=== PATIENT | female | born 1980 | race American Indian/Alaskan Native ===

== ENCOUNTER 2017-04-28 18:18 | Inpatient (IN) | payer OTHER ==
[2017-04-28] MEDS ORDERED: Lactated Ringer's 1,000 ML IV SCH (19:00)
--- NOTE | 2017-04-28 19:29 | ED PDOC ---
HPI: Abdomen Time Seen by Provider: 04/28/17 18:32 Chief Complaint (Nursing): Abdominal Pain Chief Complaint (Provider): Vaginal bleeding, 14 weeks gestation Outside of [place] travel?: No Current Symptoms Are (Timing): Still Present Additional Complaint(s): LMP 01/15/18 presents with vaginal bleeding. Pt seen in ER at approx 5 weeks with some spotting. Pt states that the bleeding was only when wiping and then resolved. PT states she has appointment with OB in 2 days and has not seen anyone since. PT states the last few days he has been having spotting again and today she had some spotting. In the last few hours she has been having bleeding , she has to wear pad a lower abdominal cramping,. Past Medical History Reviewed: Historical Data, Nursing Documentation, Vital Signs Vital Signs: Last Vital Signs Temp 98.0 F 04/28/17 18:27 Pulse 85 04/28/17 18:27 Resp 16 04/28/17 18:27 BP 144/87 04/28/17 18:27 Pulse Ox 100 04/28/17 18:27 - Medical History PMH: No Chronic Diseases Denies: Chronic Kidney Disease - Surgical History Surgical History: Tonsillectomy - Family History Family History: States: Unknown Family Hx - Living Arrangements Living Arrangements: With Family - Social History Current smoker - smoking cessation education provided: No - Home Medications Home Medications: Ambulatory Orders Medication Instructions Recorded Docusate [Colace] 100 mg PO BID #0 udc 06/20/14 oxyCODONE/Acetaminophen [Percocet 1 tab PO Q4 PRN #0 tab 06/20/14 5/325 mg Tab] Multivit/Folic Acid/I 1 tab PO DAILY #30 tab 02/23/17 [ Plus] - Allergies Allergies/Adverse Reactions: Allergies Allergy/AdvReac Type Severity Reaction Status Date / Time No Known Allergies Allergy Verified 04/28/17 18:27 Review of Systems ROS Statement: Except As Marked, All Systems Reviewed And Found Negative Constitutional: Negative for: Fever, Chills Respiratory: Negative for: Cough, Shortness of Breath Genitourinary Female: Positive for: Vaginal Bleeding, Pelvic Pain Physical Exam - Reviewed Nursing Documentation Reviewed: Yes Vital Signs Reviewed: Yes - Physical Exam Appears: Positive for: Well, Non-toxic, No Acute Distress Head Exam: Positive for: ATRAUMATIC, NORMAL INSPECTION, NORMOCEPHALIC Skin: Positive for: Normal Color, Warm, DRY Eye Exam: Positive for: Normal appearance ENT: Positive for: Normal ENT Inspection Neck: Positive for: Normal, Painless ROM Cardiovascular/Chest: Positive for: Regular Rate, Rhythm Respiratory: Positive for: CNT, Normal Breath Sounds Gastrointestinal/Abdominal: Positive for: Normal Exam, Bowel Sounds, Soft. Negative for: Tenderness Back: Positive for: Normal Inspection Extremity: Positive for: Normal ROM Neurologic/Psych: Positive for: Alert, Oriented - ECG O2 Sat by Pulse Oximetry: 100 Medical Decision Making Medical Decision Making: Endorsed pending US and labs. Disposition - Clinical Impression Clinical Impression: Abdominal pain in - Patient ED Disposition Is Patient to be Admitted: Transfer of Care - Disposition Disposition: Transfer of Care Disposition Time: 20:00 Condition: GOOD
[2017-04-28 20:00] LABS: BASO % 0.4 % (0.0-2.0); EOS # 0.2 K/uL (0.0-0.7); EOS % 1.7 % (0.0-4.0); HEMOGLOBIN 13.1 g/dL (12.0-16.0); LYMPH # 1.5 K/uL (1.0-4.3); LYMPH % 14.1 % (20.0-40.0); MEAN CELL VOLUME 90.8 fl (81.0-99.0); MEAN CORPUSCULAR HGB CONC 34.1 g/dL (33.0-37.0); MEAN PLATELET VOLUME 7.7 fl (7.2-11.7); MONO # 0.9 K/uL (0.0-0.8); MONO % 8.3 % (0.0-10.0); NEUT # 7.9 K/uL (1.8-7.0); NEUT % 75.5 % (50.0-75.0); RBC 4.24 Mil/uL (3.80-5.20); RED CELL DISTRIBUTION WIDTH 13.8 % (11.5-14.5); WHITE BLOOD COUNT 10.5 K/uL (4.8-10.8)
[2017-04-28 20:17] LABS: ALB/GLOB RATIO 1.2 (1.0-2.1); ALT/SGPT 30 U/L (9-52); AST/SGOT 28 U/L (14-36); BLOOD UREA NITROGEN 11 mg/dl (7-17); CALCIUM 9.5 mg/dL (8.4-10.2); GFR AFRICAN-AMERICAN > 60; GFR NON-AFRICAN AMERICAN > 60
--- NOTE | 2017-04-28 21:13 | ED PDOC ---
- Laboratory Results Result Diagrams: 04/28/17 19:18 04/28/17 19:18 - ECG O2 Sat by Pulse Oximetry: 100 Medical Decision Making Medical Decision Making: Case endorsed to check writer salesperson from [facility] at 1999 pending US review and re-eval Upon my eval, pt in bed reports heavy bleeding beginning. Pt standing up in ED room with blood pooling onto floor. Pelvic preformed by check writer salesperson. (+) clots removed, cervix minimally open, 1 cm. Pt reports no cramping, declined analgesics at this time. US IMPRESSION: Single intrauterine with fetus corresponding to gestational age of 10 weeks and 4 days. No heart rate is identified. These findings are concerning for first trimester failure. Correlate clinically Case discussed with OB on-james, Dr. Dias, who presented to see and evaluated Pt at bedside. Pt to be admitted, D&C in am. Consent for procedure and possible transfusion if needed obtained by Larissa Ortega and check writer salesperson. Disposition - Clinical Impression Clinical Impression: Missed - POA Present On Arrival: None - Disposition Disposition: Admitted as In-Patient Disposition Time: 00:10 Condition: GOOD Forms: [facility] ([place])
--- NOTE | 2017-04-29 00:27 | CP.PCM.CON ---
<Andreas Tatum - Last Filed: 04/29/17 00:31> History of Present Illness - History of Present Illness History of Present Illness: 37 yo EGA approximately 14.6 wk based on LMP 01/14/2017 presents with 2 day history of pelvic cramping with spotting and 1 day history of vaginal bleeding with clots. She shares that throughout this , she has been experiencing occasional vaginal spotting of blood every other month. She has not been able to formally see obstetrics due to not having insurance. Last US:02/23/2017: Impression: Gestational sac identified. Below the threshold for calculation of reliable gestational age. PNC: scheduled with a provider in [place] PCP: none Obhx: Ab at 8 wks 16 years ago Gyne: denies hx of STIs; pap negative 1 year ago Mhx: umbilical hernia Famhx: dvt Surg: umbilica hernia repair 2014 Soc: denies: smoking/alcohol/illicit drugs Rx: PNV NKDA General: pleasant, in no acute distress HEENT: normocephalic, PERRLA; AAOx3 Heart: no murmurs, regular rate and rhythm, S1, S2 normal. Lungs: clear to auscultation bilaterally, no wheezing Abdomen: nontender CVA: negative Lower extremities: negative for pitting edema Pelvic: blood clots within the vaginal canal, however, no active bleeding. Cervix closed. Enrobing Machine Operator: YUMIKO Vega 37 yo EGA approximately 14.6 wk based on LMP 01/14/2017 Missed -Admit to floor on gyne service -H/H: 13.1/38.5 -Schedule for AM D&C; Consent obtained. Case d/w Dr. Larissa Tatum MD Family Medicine, PGY1 Past Patient History - Infectious Disease Hx of Infectious Diseases: None - Tetanus Immunizations Tetanus Immunization: Unknown - Past Medical History & Family History Past Medical History?: No - Past Social History Smoking Status: Never Smoked - CARDIAC Hx Cardiac Disorders: No - PULMONARY Hx Respiratory Disorders: No - NEUROLOGICAL Hx Neurological Disorder: No - HEENT Hx HEENT Problems: No - RENAL Hx Chronic Kidney Disease: No - ENDOCRINE/METABOLIC Hx Endocrine Disorders: No - HEMATOLOGICAL/ONCOLOGICAL Hx Blood Disorders: No - INTEGUMENTARY Hx Dermatological Problems: No - MUSCULOSKELETAL/RHEUMATOLOGICAL Hx Musculoskeletal Disorders: No - GASTROINTESTINAL Hx Gastrointestinal Disorders: No - GENITOURINARY/GYNECOLOGICAL Hx Genitourinary Disorders: No - PSYCHIATRIC Hx Psychophysiologic Disorder: No Hx Substance Use: No - SURGICAL HISTORY Hx Tonsillectomy: Yes - ANESTHESIA Hx Anesthesia: Yes Hx Anesthesia Reactions: No (denies) Hx Malignant Hyperthermia: No Meds Allergies/Adverse Reactions: Allergies Allergy/AdvReac Type Severity Reaction Status Date / Time No Known Allergies Allergy Verified 04/29/17 02:23 - Medications Medications: Current Medications Lactated Ringer's (Lactated Ringer's) 1,000 mls @ 1,000 mls/hr IV .Q1H ARTHUR Last Admin: 04/28/17 19:16 Dose: 1,000 mls/hr Lactated Ringer's (Lactated Ringer's) 1,000 mls @ 125 mls/hr IV .Q8H ARTHUR Results - Vital Signs Recent Vital Signs: Last Vital Signs Temp 98.0 F 04/28/17 18:27 Pulse 85 04/28/17 18:27 Resp 16 04/28/17 18:27 BP 144/87 04/28/17 18:27 Pulse Ox 100 04/29/17 00:10 - Labs Result Diagrams: 04/28/17 19:18 04/28/17 19:18 Labs: Laboratory Results - last 24 hr 04/28/17 04/28/17 04/28/17 19:18 19:18 19:18 WBC 10.5 RBC 4.24 Hgb 13.1 Hct 38.5 MCV 90.8 MCH 31.0 MCHC 34.1 RDW 13.8 Plt Count 293 MPV 7.7 Neut % (Auto) 75.5 H Lymph % (Auto) 14.1 L [place] % (Auto) 8.3 Eos % (Auto) 1.7 Baso % (Auto) 0.4 Neut # 7.9 H Lymph # 1.5 [place] # 0.9 H Eos # 0.2 Baso # 0.0 Sodium 140 Potassium 4.0 Chloride 104 Carbon Dioxide 27 Anion Gap 13 BUN 11 Creatinine 0.7 Est GFR ( Amer) > 60 Est GFR (Non-Af Amer) > 60 Random Glucose 92 Calcium 9.5 Total Bilirubin 0.4 AST 28 ALT 30 Alkaline Phosphatase 69 Total Protein 7.3 Albumin 4.0 Globulin 3.3 Albumin/Globulin Ratio 1.2 Beta HCG, Quant 3730.00 Blood Type O POSITIVE Antibody Screen Negative BBK History Checked Patient has bt <Daljit Dias - Last Filed: 04/29/17 07:28> Meds - Medications Medications: Current Medications Acetaminophen (Tylenol 325mg Tab) 650 mg PO Q4H PRN PRN Reason: Pain, Mild (1-3) Last Admin: 04/29/17 02:27 Dose: 650 mg Lactated Ringer's (Lactated Ringer's) 1,000 mls @ 1,000 mls/hr IV .Q1H ARTHUR Last Admin: 04/28/17 19:16 Dose: 1,000 mls/hr Lactated Ringer's (Lactated Ringer's) 1,000 mls @ 125 mls/hr IV .Q8H ARTHUR Results - Vital Signs Recent Vital Signs: Last Vital Signs Temp 99 F 04/29/17 06:04 Pulse 70 04/29/17 06:04 Resp 20 04/29/17 06:04 BP 105/62 04/29/17 06:04 Pulse Ox 100 04/29/17 06:04 - Labs Result Diagrams: 04/29/17 05:30 04/28/17 19:18 Labs: Laboratory Results - last 24 hr 04/28/17 04/28/17 04/28/17 19:18 19:18 19:18 WBC 10.5 RBC 4.24 Hgb 13.1 Hct 38.5 MCV 90.8 MCH 31.0 MCHC 34.1 RDW 13.8 Plt Count 293 MPV 7.7 Neut % (Auto) 75.5 H Lymph % (Auto) 14.1 L [place] % (Auto) 8.3 Eos % (Auto) 1.7 Baso % (Auto) 0.4 Neut # 7.9 H Lymph # 1.5 [place] # 0.9 H Eos # 0.2 Baso # 0.0 Sodium 140 Potassium 4.0 Chloride 104 Carbon Dioxide 27 Anion Gap 13 BUN 11 Creatinine 0.7 Est GFR ( Amer) > 60 Est GFR (Non-Af Amer) > 60 Random Glucose 92 Calcium 9.5 Total Bilirubin 0.4 AST 28 ALT 30 Alkaline Phosphatase 69 Total Protein 7.3 Albumin 4.0 Globulin 3.3 Albumin/Globulin Ratio 1.2 Beta HCG, Quant 3730.00 Blood Type O POSITIVE Antibody Screen Negative BBK History Checked Patient has bt 04/29/17 05:30 WBC RBC Hgb 11.3 L Hct 33.5 L MCV MCH MCHC RDW Plt Count MPV Neut % (Auto) Lymph % (Auto) [place] % (Auto) Eos % (Auto) Baso % (Auto) Neut # Lymph # [place] # Eos # Baso # Sodium Potassium Chloride Carbon Dioxide Anion Gap BUN Creatinine Est GFR ( Amer) Est GFR (Non-Af Amer) Random Glucose Calcium Total Bilirubin AST ALT Alkaline Phosphatase Total Protein Albumin Globulin Albumin/Globulin Ratio Beta HCG, Quant Blood Type Antibody Screen BBK History Checked Assessment & Plan - Assessment and Plan (Free Text) Assessment: Missed Plan: LATE ENTRY FOR Apr 28 23:00 Pt seen with PGY1 and Shelby CALDERON. She had VB 2-3x while in ER. Passed blood clots. SSE: blood clot. Cx closed Condition and procedure explained to pt. Informed consent obtained - Date & Time Date: 04/29/17 Time: 07:30
[2017-04-29 06:05] LABS: HEMOGLOBIN 11.3 g/dL (12.0-16.0)
--- NOTE | 2017-04-29 07:43 | CP.PCM.PN ---
Subjective - Date & Time of Evaluation Date of Evaluation: 04/29/17 Time of Evaluation: 07:30 - Subjective Subjective: S: 37 yo . Missed . Pt. is seen and examined at bedside this AM. No overnight events. Pt reports occasional headaches, but well controlled with pain meds. Currently spotting blood from vagina. Voiding freely. Denies fever, chills, diarrhea, nausea, vomiting, chest pain, dyspnea, and dizziness. O: VS: stable GEN: NAD Cardio: S1S2, no M/G/R Resp: clear breath sounds b/l Abdomen: soft, active bowel sounds EXT: No edema, calves nontender NEURO/PSYCHI: AAOx3 Assessment/Plan: 37 yo . Missed . -follow H/H -pending add-on for D&C; consent obtained Case dw OB Attending --- Andreas Tatum MD PGY-1 Objective - Vital Signs/Intake and Output Vital Signs (last 24 hours): Temp Pulse Resp BP Pulse Ox 99 F 70 20 105/62 100 04/29/17 06:04 04/29/17 06:04 04/29/17 06:04 04/29/17 06:04 04/29/17 06:04 Intake and Output: 04/29/17 04/29/17 06:59 18:59 Intake Total 775 Balance 775 - Medications Medications: Current Medications Acetaminophen (Tylenol 325mg Tab) 650 mg PO Q4H PRN PRN Reason: Pain, Mild (1-3) Last Admin: 04/29/17 02:27 Dose: 650 mg Lactated Ringer's (Lactated Ringer's) 1,000 mls @ 1,000 mls/hr IV .Q1H ARTHUR Last Admin: 04/28/17 19:16 Dose: 1,000 mls/hr Lactated Ringer's (Lactated Ringer's) 1,000 mls @ 125 mls/hr IV .Q8H ARTHUR - Labs Labs: 04/29/17 05:30 04/28/17 19:18
[2017-04-29] MEDS: Lactated Ringer's 1,000 ML IV SCH ×2 (09:52→09:53)
[2017-04-29] MEDS ORDERED: Propofol 10 mg/ml Inj (20 ML) ONE (10:05)
[2017-04-29] MEDS ORDERED: Midazolam 2 MG/2 ML VIAL ONE (10:05)
[2017-04-29] MEDS ORDERED: Lidocaine 1% 5ml Abboject IV ONE (10:06)
[2017-04-29] MEDS ORDERED: Lidocaine 2% Jelly (5 ml) TOP ONE (10:08)
[2017-04-29] MEDS ORDERED: Lactated Ringer's 1,000 ML IV ONE (10:20)
[2017-04-29] MEDS ORDERED: cefOXitin IV 1 gm in Dextrose 1 GM/50 ML BAG IVPB ONE (10:28)
[2017-04-29] MEDS ORDERED: cefOXitin 2 GM in Sodium Chloride 0.9% 100 ML IVPB STA (10:32)
[2017-04-29] MEDS ORDERED: Oxytocin 10 Units/ml Inj ONE (10:43)
--- NOTE | 2017-04-29 10:49 | US ---
OB ultrasound dated 04/28/2017. Transvaginal sonographic evaluation of the pelvis performed. The uterus is anteverted measuring approximately 12.5 x 9.3 x 6.8 cm. Uterine fibroids are present ; one on the left measuring approximately 2.1 in greatest dimension and another on the right posteriorly measuring approximately 1.7 cm in greatest dimension. The cervix is closed and measures approximately 3.9 cm. There is an apparent intrauterine gestation however no heart rate or movement detected. Findings are consistent with 1st trimester failure/ demise. Measurements: Gestational sac: MSD = 3.49 cm = 8 weeks 4 days Yolk sac: Not visualized pole: CRL = 3.69 cm = 10 weeks 4 days Heart motion: Not detected movement: Not detected Average ultrasound age based 9 weeks 4 days 0 weeks 5 days BINA based on average ultrasound age = 0811/27/2017 No gross free fluid seen in the cul sac. Right ovary measures 3.65 x 2.8 x 1.35 cm. Right ovary exhibits arterial flow. Left ovary measures 3.97 x 3.3 x 2.0 cm and also exhibits arterial flow. There is a left adnexal complex cyst possibly representing corpus luteum cyst of measuring approximately 2.0 x 1.6 x 1.4 cm. Impression: There is a single intrauterine with average ultrasound age estimated at approximately 9 weeks 4 days 0 weeks 5 days. No heart rate nor movement detected. Findings are consistent with 1st trimester failure/ demise. Uterine fibroids. Complex left adnexal cyst. Preliminary report provided by [facility] radiology service
[2017-04-29] MEDS ORDERED: HYDROmorphone 0.5 mg/0.5 ml ISec IVP PRN (10:58)
[2017-04-29] MEDS ORDERED: Lactated Ringer's 1,000 ML IV SCH (11:00)
[2017-04-29 11:03] VITALS: RESP 20; O2SAT 100
--- NOTE | 2017-04-29 11:11 | PCM.SURG1 ---
Surgeon's Initial Post Op Note - Surgeon's Notes Surgeon: Dr Barnes Podiatrist Assistant: Geraldine ( Family Practice Resident ) Type of Anesthesia: General LMA Anesthesia Administered By: Dr Cain Pre-Operative Diagnosis: Incomplete Spontaneous . Operative Findings: 12 week sized ante-verted uterus with opened cervix and products of conception seen in the cervical canal. Copious amounts of POC suctioned and curretted from the intrauterine cavity. IVFluids- 300mls. EBL - 30mls. Urine output- 40mls Post-Operative Diagnosis: Same as preop Diagnosis Operation Performed: Suction D and C Specimen/Specimens Removed: Products of conception Estimated Blood Loss: EBL {In ML}: 30 Blood Products Given: N/A Post-Op Condition: Good Date of Surgery/Procedure: 04/29/17 Time of Surgery/Procedure: 11:12
[2017-04-29 12:43] VITALS: TEMP 98.8
[2017-04-29 16:34] VITALS: BP 123/55; PULSE 92
--- NOTE | 2017-04-29 19:04 | OP ---
PROCEDURE DATE: 04/29/2017 PREOPERATIVE DIAGNOSIS: Incomplete spontaneous . POSTOPERATIVE DIAGNOSIS: Incomplete spontaneous . PROCEDURE DONE: Suction D&C, performed on 04/29/2017. SURGEON: Rashid Barnes MD. STUMPER FELLER: Dr. Carney, a family practice resident. TYPE OF ANESTHESIA: General anesthesia. ANESTHESIA ADMINISTERED BY: Dr. Cain. FINDINGS: A 12-week sized anteverted uterus with open cervix with products of conception seen in the cervical canal. Copious amounts of products of conception were suctioned and curetted from the intrauterine cavity. There were no bleeding after the procedure. INTRAVENOUS FLUID INTAKE: 300 mL. ESTIMATED BLOOD LOSS: About 30 to 40 mL. URINE OUTPUT: 40 mL of clear urine. COMPLICATIONS: There were no complications. SPECIMEN: Products of conception were sent for pathology. DESCRIPTION OF PROCEDURE: After obtaining informed consent and given the risks, benefits, and alternatives to the procedure and having all her questions answered, patient was sent to the OR with IV running and patient was placed in a supine position on the OR table. After adequate general anesthesia, the patient was repositioned in the dorsal lithotomy position using Phuc stirrups. The patient was then prepped and draped in the usual sterile fashion. The pelvic examination was performed to identify the size of the uterus. A weighted speculum was placed in the posterior vaginal vault to depress it and also an L-shaped retractor was used to elevate the anterior wall of the vagina to expose the cervix. The anterior lip of the cervix was held with a single-toothed tenaculum with the above findings noted. A size 10 suction cannula was introduced into the uterine cavity and then suction applied to it. Several passes of the cannula into the uterine cavity was made and copious amounts of products of conception were suctioned and curetted. The uterine was sounded to a depth of about 10 cm. Once the cavity was completed, sharp curettage was also performed using a sharp curette and the suction procedure was repeated after the sharp curettage. The uterus was noted to be empty and all instruments were removed from the cervix and the vagina. Patient was then replaced into the supine position and was later sent to the recovery room awake and in stable condition. All counts of instruments got used were correct x3. Patient tolerated the procedure well. Rashid Barnes MD [facility] # [id number]
== END 2017-04-29 17:00 | disposition hospice, home (50) | DRG 770 ==
LOC: H.ER 18:18 → H.ERHOLD 23:54 → H.PEDS 04-29 01:20
PROVIDERS: ADMIT Obstetrics & Gynecology; ATTEND Obstetrics & Gynecology
PROC: 10D17ZZ Extraction of Products of Conception, Retained, Via Natural or Artificial Opening (ICD-10-PCS; principal; 2017-04-29 08:30)
DX: O03.4 Incomplete spontaneous abortion without complication (principal)